=== PATIENT | female | born 1955 | race Caucasian/White ===

== ENCOUNTER 2022-07-25 10:52 | Day surgery (SDC) | payer MEDICARE, BC, OTHER ==
[~2022-07-25 10:52] MED LIST: LIDOCAINE 1% (10MG/ML) FOR IV START INTRADERMA PRN; ONDANSETRON 4 MG/2 ML VIAL IVP PRN; SODIUM CHLORIDE 0.9% 1,000 ML IV SCH
[2022-07-25] MEDS ORDERED: SODIUM CHLORIDE 0.9% 1,000 ML IV ONE (11:14)
[2022-07-25 11:40] LABS: African American GFR (CKD) >90 (>60 ml/min/1.73 sqM); Anion Gap 10 mmol/L; Blood Urea Nitrogen 13 mg/dL (7-17); Calcium 9.4 mg/dL (8.4-10.2); Carbon Dioxide 27 mmol/L (22-30); Chloride 103 mmol/L (98-107); Glucose 91 mg/dL (74-99); Non-African American GFR(CKD) >90 (>60 ml/min/1.73 sqM); Sodium 140 mmol/L (137-145)
[2022-07-25 11:42] LABS: Basophils % (A) 1 %; Eosinophils # (A) 0.2 k/uL (0-0.7); Eosinophils % (A) 3 %; HCT 44.6 % (34.0-46.0); HGB 14.1 gm/dL (11.4-16.0); Lymphocytes # (A) 1.7 k/uL (1.0-4.8); Lymphocytes % (A) 24 %; MCH 28.4 pg (25.0-35.0); MCHC 31.7 g/dL (31.0-37.0); MCV 89.4 fL (80.0-100.0); Mean Platelet Volume 7.7; Monocytes # (A) 0.5 k/uL (0-1.0); Monocytes % (A) 6 %; Neutrophils # (A) 4.6 k/uL (1.3-7.7); Neutrophils % (A) 64 %; Platelet Count 295 k/uL (150-450); RBC 4.99 m/uL (3.80-5.40); RDW 12.2 % (11.5-15.5); WBC 7.2 k/uL (3.8-10.6)
[2022-07-25] MEDS ORDERED: MIDAZOLAM 2 MG/2 ML VIAL ONE (14:43)
[2022-07-25] MEDS ORDERED: PROPOFOL 10 MG/ML 20 ML VIAL IV ONE (14:43)
[2022-07-25] MEDS ORDERED: fentaNYL (PF) 50 MCG/ML 2 ML AMP ONE (14:43)
[2022-07-25] MEDS ORDERED: IV FLUID CONTINUATION 800 ML IV ONE (14:54)
[2022-07-25] MEDS ORDERED: LIDOCAINE 1% INJ 10MG/ML (30 ML VIAL-PF) SQ ONE (15:06)
[2022-07-25] MEDS ORDERED: HEPARIN SODIUM (1,000 UNIT/ML) 1,000 UNIT in SODIUM CHLORIDE 0.9% 1,000 ML IRRIGATION ONE (17:57)
--- NOTE | 2022-07-25 18:14 | P.PRLE ---
RE: Marisol Ramos Dear Julieta Cam Ramos has had multiple episodes of dizzy spells chest pain and palpitations You had documented runs of SVT on her event monitor She underwent a tilt table test She did not have any evidence for neurocardiogenic syncope although there were dips in her blood pressure especially after she developed spontaneous SVT, even though these episodes were brief Subsequently she underwent a diagnostic EP study, which revealed 1. A high right atrial tachycardia, just below the SVC, on the lateral aspect of the right atrium Successful ablation was performed and the tachycardia was rendered noninducible The phrenic nerve was not affected 2. During the EP study we noted that she had a second atrial tachycardia This tachycardia was mapped to the tricuspid annulus, at the 6 o'clock position Successful ablation was performed in the tachycardia was rendered noninducible Following that full EP study is performed and no further arrhythmias were induced However she does have a tendency for atrial fibrillation with mechanical stimulation in the mid right atrial free wall and the right atrial isthmus However atrial fibrillation could not be induced during the EP study pacing maneuvers I would recommend stopping metoprolol and digoxin but continuing Zestril at a higher dose of 10 mg by mouth daily for blood pressure control Thank you for entrusting me with the care of the patient Warm regards Sincerely Akash Contreras Cardiovascular medicine and Cardiac electrophysiology
--- NOTE | 2022-07-25 18:15 | P.PRLE ---
RE: Marisol Ramos Dear Dr. Karen Ramos underwent a tilt table test She did not have any evidence for neurocardiogenic syncope with a were dips in her blood pressure especially after she developed spontaneous SVT, even though these episodes were brief Subsequently be performed a diagnostic EP study which revealed A high right atrial tachycardia, just below the SVC, on the lateral aspect Successful ablation was performed and the tachycardia was rendered noninducible The phrenic nerve was not affected During the EP study we noted that she had a second atrial tachycardia This tachycardia was mapped to the tricuspid annulus, at the 6 o'clock position Successful ablation was performed in the tachycardia was rendered noninducible She does have a tendency for atrial fibrillation but with mechanical stimulation from catheter contact at the mid right atrial wall and the right atrial isthmus However after successful ablation of the above to atrial tachycardias, atrial fibrillation could not be induced with pacing maneuvers and Isuprel I would recommend stopping metoprolol and digoxin but continuing Zestril at a higher dose of 10 mg by mouth daily for blood pressure control Thank you for entrusting me with the care of the patient Warm regards Sincerely Akash Contreras
--- NOTE | 2022-07-25 18:22 | P.EPPROC ---
- EP Procedure Note Electrophysiology Procedure Note: Diagnosis Recurrent SVT associated with dizziness and chest pain and drug refractory Final diagnosis High right atrial tachycardia from just below the SVC, on the lateral aspect of the upper artery Status post successful ablation in the tachycardia was rendered noninducible Phrenic nerve remained intact Second atrial tachycardia from the tricuspid annulus, 6 o'clock position Status post successful ablation in the tachycardia was rendered noninducible Atrial fibrillation induced with mechanical contact in the regions of the mid RV free wall and right atrial isthmus Atrial fibrillation could not be induced with pacing maneuvers on Isuprel after successful ablation of the to atrial tachycardias Details Patient was brought to the EP lab in a fasting state. 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 Venous sheaths were placed in the right and left femoral veins Diagnostic cath was placed in the high right atrium, His bundle area right ventricle and coronary sinus Baseline measurements Sinus cycle length 884 ms, DE interval 114 ms, QRS 82 ms and QT 480 ms AH interval 112 ms and HV interval 31 ms Sinus node recovery times at 600, 504 100 ms with 1162, 1273 and 1089 ms AV node Wenckebach block 320 ms No evidence for slow pathway conduction VA Wenckebach block greater than 600 ms Pacing from the coronary sinus and from the high right atrium induced atrial tachycardia with ease Atrial tachycardia could be induced for the most minimal stimulation The first atrial tachycardia induced was a high right atrial tachycardia 3-D electrograms mapping was performed Intracardiac echo was performed This is localized to the high right atrium on the lateral aspect just below the SVC Phrenic nerve could not be stimulation from the site RF ablation was applied and the tachycardia was rendered noninducible However during mapping of this tachycardia be noted a second atrial tachycardia as well as episodes of atrial fibrillation with mechanical stimulation Atrial fibrillation was induced with mechanical stimulation from the and table lateral aspect of the free wall of the right atrium and the right atrial isthmus These episodes were short-lived and with spontaneously terminate in less than 30 seconds Atrial extra stimulation induced a second atrial tachycardia This was mapped to the chemo tricuspid isthmus, just at the level of the tricuspid annulus, 6 o'clock position Successful RF ablation was performed and the tachycardia was also rendered noninducible Thereafter high dose Isuprel was employed atrial pacing was employed no further atrial tachycardias could be induced No atrial fibrillation could be induced Intracardiac echo at the end of the procedure revealed no evidence for pericardial effusion Venous sheaths were closed with Vascade closure device after removal of the catheters Patient tolerated the procedure well without any acute complications Plan Stop metoprolol Stop digoxin Continue antihypertensive therapy with lisinopril
[2022-07-25] MEDS ORDERED: ACETAMINOPHEN TAB 325 MG TAB PO PRN (18:23)
--- NOTE | 2022-07-25 18:28 | P.EPPROC ---
- EP Procedure Note Electrophysiology Procedure Note: Diagnosis Recurrent dizzy spells Twelve-lead EKG shows sinus rhythm normal UT narrow QRS normal ST segments Tilt table test for protocol Baseline blood pressure 140s over 76. His mercury Baseline heart rate 68 beats a minute Patient was tilted upright at an angle of 70 per protocol During the tilt table tests she had an episode of narrow complex of ventricular tachycardia, long antitachycardia with negative P waves in lead V1 Almost like a W-shaped pattern Following that her blood pressure dipped to 106/60. His mercury Transfer neuro cardiac syncope when she was laid supine at the end of the procedure Impression Normal twelve-lead EKG Spontaneous narrow complex ventricular tachycardia no evidence for neurocardiac syncopal
[2022-07-25] MEDS: LACTATED RINGERS 1,000 ML IV SCH (19:48)
[2022-07-25] MEDS: ACETAMINOPHEN IV (For NPO) 1,000 MG in EMPTY BAG 1 BAG IVPB ONE ×2 (19:57→21:28)
[2022-07-25] MEDS ORDERED: SODIUM CHLORIDE 0.9% 500 ML 500 ML IV ONE (22:41)
[2022-07-25] MEDS ORDERED: KETOROLAC 15 MG/ML 1 ML VIAL IVP STA (22:42)
[2022-07-25] MEDS ORDERED: METOCLOPRAMIDE 5 MG/ML 2 ML VIAL IVP STA (22:42)
[2022-07-26] MEDS: LACTATED RINGERS 1,000 ML IV SCH (02:47)
--- NOTE | 2022-07-26 04:39 | P.DS ---
Providers Attending physician: Akash Contreras Primary care physician: [facility] Course: Patient is doing well this morning She looks a lot more comfortable than last evening Last evening after her procedure she was going nauseous and she was also complaining of chest discomfort Now she has no chest discomfort no pleuritic discomfort at all nausea is a lot better she's lying in bed comfortably No dizziness no lightheadedness On examination her heart sounds are normal and regular No pericardial rub Lungs no rhonchi no crackles Groins of healed well She is lying supine in bed no orthopnea Impression High right atrial tachycardia, dyspnea the SVC, lateral right atrium Status post successful ablation and the tachycardia was rendered noninducible Low right atrial tachycardia at the tricuspid valve, 6 o'clock position, right atrium Status post successful ablation and the tachycardia was rendered noninducible Plan Increase lisinopril 10 mg by mouth daily Stop metoprolol Stop digoxin Atorvastatin 20 mg by mouth daily discharge home if hemodynamically stable today and ambulatory Follow-up with Dr. Contreras in 1 week Patient Condition at Discharge: Stable Plan - Discharge Summary Discharge Rx Participant: No New Discharge Prescriptions: No Action Digoxin [Lanoxin] 125 mcg PO DAILY Acetaminophen Tab [Tylenol] 325 mg PO Q4H PRN PRN Reason: Pain Omeprazole 20 mg PO DAILY Unk Vitamin C 1 tab PO DAILY Unk Multi Vitamin 1 tab PO DAILY lisinopriL [Zestril] 5 mg PO DAILY Unk Vitamin D3 1 tab PO DAILY Discharge Medication List Acetaminophen Tab [Tylenol] 325 mg PO Q4H PRN 07/24/22 [History] Digoxin [Lanoxin] 125 mcg PO DAILY 07/24/22 [History] Omeprazole 20 mg PO DAILY 07/24/22 [History] Unk Multi Vitamin 1 tab PO DAILY 07/24/22 [History] Unk Vitamin C 1 tab PO DAILY 07/24/22 [History] Unk Vitamin D3 1 tab PO DAILY 07/24/22 [History] lisinopriL [Zestril] 5 mg PO DAILY 07/24/22 [History]
[2022-07-26 08:47] VITALS: BP 134/78; PULSE 71; RESP 17; TEMP 97.7
[2022-07-26] MEDS ORDERED: lisinopriL 10 MG TAB PO SCH (09:00)
[2022-07-26] MEDS ORDERED: ONDANSETRON 4 MG/2 ML VIAL IVP PRN (09:11)
== END 2022-07-26 11:04 | disposition home or self-care (01) ==
LOC: CATHEP 10:52 → 6NMEDSUR 17:55 → CATHEP 07-26 11:04
PROVIDERS: ATTEND Internal Medicine Clinical Cardiac Electrophysiology
DX: I47.1 Supraventricular tachycardia (principal); R55 Syncope and collapse; I10 Essential (primary) hypertension; F17.210 Nicotine dependence, cigarettes, uncomplicated; Z79.899 Other long term (current) drug therapy; Z20.822 Contact with and (suspected) exposure to COVID-19
CPT/HCPCS: 93623; 93662; 93613; 93660; 93653; 93655; 80048; 85025; 87635; C1759; C1894; C1769 ×2; C1760; C1766; C1730 ×2; C1732; J2250; J2765; J2405 ×2; J2001; J3010; J1644; J1885; J2704

== ENCOUNTER 2022-07-27 19:04 | Inpatient (IN) | payer MEDICARE, BC, OTHER ==
[2022-07-27] MEDS ORDERED: SODIUM CHLORIDE 0.9% 1,000 ML IV STA (19:18)
[2022-07-27 19:57] LABS: Basophils % (A) 0 %; Eosinophils # (A) 0.2 k/uL (0-0.7); Eosinophils % (A) 3 %; HCT 31.5 % (34.0-46.0); Lymphocytes # (A) 1.9 k/uL (1.0-4.8); Lymphocytes % (A) 31 %; MCH 29.4 pg (25.0-35.0); MCHC 32.5 g/dL (31.0-37.0); MCV 90.4 fL (80.0-100.0); Mean Platelet Volume 8.1; Monocytes # (A) 0.4 k/uL (0-1.0); Monocytes % (A) 7 %; Neutrophils # (A) 3.6 k/uL (1.3-7.7); Neutrophils % (A) 58 %; Platelet Count 218 k/uL (150-450); RBC 3.49 m/uL (3.80-5.40); RDW 12.3 % (11.5-15.5); WBC 6.3 k/uL (3.8-10.6)
[2022-07-27 20:13] LABS: ALT 21 U/L (4-34); AST 29 U/L (14-36); African American GFR (CKD) >90 (>60 ml/min/1.73 sqM); Albumin 3.7 g/dL (3.5-5.0); Alkaline Phosphatase 62 U/L (38-126); Anion Gap 10 mmol/L; Blood Urea Nitrogen 9 mg/dL (7-17); Calcium 8.9 mg/dL (8.4-10.2); Carbon Dioxide 28 mmol/L (22-30); Chloride 104 mmol/L (98-107); Glucose 100 mg/dL (74-99); Magnesium 1.9 mg/dL (1.6-2.3); Non-African American GFR(CKD) >90 (>60 ml/min/1.73 sqM); Potassium 3.7 mmol/L (3.5-5.1); Sodium 142 mmol/L (137-145)
[2022-07-27 20:23] LABS: INR 1.1 (<1.2); Prothrombin Time 11.5 sec (9.0-12.0)
[2022-07-27 20:25] LABS: Total Bilirubin 0.7 mg/dL (0.2-1.3)
[2022-07-27 20:28] LABS: HGB 10.2 gm/dL (11.4-16.0)
[2022-07-27] MEDS ORDERED: HEPARIN SODIUM 1,000 UN/ML (10ML VL) IV PRN (20:30)
--- NOTE | 2022-07-27 20:35 | ED ---
Chest Pain HPI - General Chief Complaint: Chest Pain Stated Complaint: chest pain Time Seen by Provider: 07/27/22 19:11 Source: patient, EMS Mode of arrival: EMS Limitations: no limitations - History of Present Illness Initial Comments: Patient is a 66-year-old female with a past medical history of COPD, hypertension, hyperlipidemia, SVT s/p recent ablation who presents to the emergency department with a chief complaint of chest pain. Patient states pain started around 2 PM this afternoon. Describes the pain as an intermittent mild aching in her chest. There is no radiation. Pain occurs at rest. It is not worsened with movement of the chest. Patient had an ablation performed by Dr. Contreras on 07/25 due to SVT. Patient states she has history of nausea and vomiting due to anesthesia and reports consistent nausea and vomiting after procedure with anesthesia. Patient currently feels nauseous however has not vomited today. Denies lightheadedness, dizziness, sweating, vomiting, abdominal pain, shortness of breath. Does report headache this morning which has since resolved. States during headache she checked blood pressure which was 180 systolic. States she takes lisinopril for blood pressure and dose was increased from 5 mg to 10 mg after procedure. Reports compliance with blood pressure medication. Patient went to [facility] today who perform cardiac workup. According to [facility] blood pressure was elevated at 208/110, EKG showed ST depression, and troponin was elevated at 0.27. Patient was given heparin bolus and aspirin and sent to our emergency department. Patient denies history of myocardial infarction. - Related Data Home Medications Medication Instructions Recorded Confirmed Acetaminophen Tab [Tylenol] 650 mg PO Q4H PRN 07/24/22 07/27/22 Omeprazole 20 mg PO DAILY 07/24/22 07/27/22 Albuterol Inhaler [Ventolin Hfa 2 puff INHALATION RT-Q6H PRN 07/27/22 07/27/22 Inhaler] Albuterol Nebulized [Ventolin 2.5 mg INHALATION RT-Q6H PRN 07/27/22 07/27/22 Nebulized] Ascorbic Acid [Vitamin C] 500 mg PO DAILY 07/27/22 07/27/22 Budesonide [Pulmicort] 0.5 mg INHALATION RT-BID PRN 07/27/22 07/27/22 Cholecalciferol [Vitamin D3 (25 25 mcg PO DAILY 07/27/22 07/27/22 Mcg = 1000 Iu)] Digoxin [Lanoxin] 125 mcg PO DAILY 07/27/22 07/27/22 HYDROcodone/APAP 7.5-325MG [[place] 1 tab PO BID PRN 07/27/22 07/27/22 7.5-325] Ketoconazole 2% Cream [Nizoral 2%] 1 applic TOPICAL DAILY PRN 07/27/22 07/27/22 Loratadine [Claritin] 10 mg PO DAILY 07/27/22 07/27/22 Multivitamins, Thera [Multivitamin 1 tab PO DAILY 07/27/22 07/27/22 (formulary)] Tazarotene [Tazorac] 1 applic TOPICAL HS PRN 07/27/22 07/27/22 metroNIDAZOLE 0.75% VAGINAL 1 applic VAGINAL DAILY PRN 07/27/22 07/27/22 [Metrogel Vaginal] Previous Rx's Medication Instructions Recorded Atorvastatin [Lipitor] 20 mg PO DAILY #90 tablet 07/26/22 lisinopriL [Prinivil] 10 mg PO DAILY #90 tab 07/26/22 Allergies Allergy/AdvReac Type Severity Reaction Status Date / Time sulfamethoxazole AdvReac Nausea & Verified 07/27/22 19:12 [From Bactrim] Vomiting trimethoprim [From Bactrim] AdvReac Nausea & Verified 07/27/22 19:12 Vomiting Review of Systems ROS Statement: Those systems with pertinent positive or pertinent negative responses have been documented in the HPI. ROS Other: All systems not noted in ROS Statement are negative. Past Medical History Past Medical History: Cancer, COPD, GERD/Reflux, Hyperlipidemia, Hypertension, Pneumonia Additional Past Medical History / Comment(s): see Dr Contreras H&P, arthritis generalized, pneumonia 6 months ago. hx UTIs. hx ovarian cancer. hiatal hernia History of Any Multi-Drug Resistant Organisms: None Reported Past Surgical History: Ablation, Hernia Repair, Hysterectomy Additional Past Surgical History / Comment(s): 4 breast tumors removed benign. left inguinal hernia repair, broken lt wrist repair repaired with plates and screws. Past Anesthesia/Blood Transfusion Reactions: Postoperative Nausea & Vomiting (PONV) Additional Past Anesthesia/Blood Transfusion Reaction / Comment(s): no blood transfusions Past Psychological History: Depression Smoking Status: Former smoker Past Alcohol Use History: None Reported Past Drug Use History: None Reported - Past Family History Mother Family Medical History: Cancer, Coronary Artery Disease (CAD), Diabetes Mellitus Additional Family Medical History / Comment(s): bone cancer Father Family Medical History: Myocardial Infarction ([place]) Brother(s) Family Medical History: Myocardial Infarction ([place]) Sister(s) Family Medical History: Myocardial Infarction ([place]) General Exam Limitations: no limitations General appearance: alert, in no apparent distress Eye exam: Present: normal appearance, PERRL, EOMI. Absent: scleral icterus, conjunctival injection, periorbital swelling Respiratory exam: Present: normal lung sounds bilaterally. Absent: respiratory distress, wheezes, rales, rhonchi, stridor Cardiovascular Exam: Present: regular rate, normal rhythm, normal heart sounds. Absent: systolic murmur, diastolic murmur, rubs, gallop, clicks Neurological exam: Present: alert, oriented X3, CN II-XII intact Psychiatric exam: Present: normal affect, normal mood Skin exam: Present: warm, dry, intact, normal color. Absent: rash Course Vital Signs 07/27/22 07/27/22 07/27/22 19:06 19:42 21:12 Temperature 98.1 F Pulse Rate 81 84 Pulse Rate [ 81 Critical Power Technician ] Respiratory 18 16 Rate Blood Pressure 177/101 136/78 O2 Sat by Pulse 95 98 Oximetry 07/27/22 21:59 Temperature Pulse Rate 76 Pulse Rate [ Critical Power Technician ] Respiratory Rate Blood Pressure 140/75 O2 Sat by Pulse Oximetry Chest Pain MDM - MDM This is a 66-year-old female presenting with chest pain after recent ablation. Patient is a well-appearing and in no apparent distress. Blood pressure elevated at 177/101. Pulse 81. Patient given fluid bolus and heparin drip. EKG shows sinus rhythm without significant ST or T wave changes from EKG on 07/25. Troponin elevated at 0.18, decreased from 0.27 at [facility] earlier this afternoon. Troponin possibly elevated due to recent ablation however given patient has chest pain I will admit her with cardiology consult and serial troponins. Case discussed with Mohsen Ramos who accept admission. Dr. Lambert is my attending. Disposition Clinical Impression: Elevated troponin, Chest pain, Nausea, Hx of prior ablation treatment Disposition: ADMITTED IP TO THIS HOSP Condition: Good
[2022-07-27] MEDS ORDERED: cloNIDine HCL 0.1 MG TAB PO STA (20:37)
[2022-07-27] MEDS ORDERED: ONDANSETRON 4 MG/2 ML VIAL IVP STA (20:39)
--- NOTE | 2022-07-27 20:48 | XR ---
EXAMINATION TYPE: XR chest 2V DATE OF EXAM: 07/27/2022 COMPARISON: NONE HISTORY: Chest pain TECHNIQUE: FINDINGS: Heart and mediastinum are normal. Lungs are clear. Diaphragm is normal. Bony thorax is inta ct. There are chest leads. IMPRESSION: Normal chest.
[2022-07-27 21:07] LABS: Partial Thromboplastin Time 118.1 sec (22.0-30.0)
[2022-07-27] MEDS ORDERED: NALOXONE 0.4 MG/ML 1 ML VIAL IV PRN (21:23)
[2022-07-27] MEDS ORDERED: ACETAMINOPHEN TAB 325 MG TAB PO PRN (21:24)
[2022-07-27] MEDS: HEPARIN SOD,PORK IN 0.45% NACL 25,000 UNIT in 0.45% NACL 1 250ML.BAG IV SCH (21:36)
[2022-07-27] MEDS ORDERED: ACETAMINOPHEN TAB 500 MG TAB PO STA (21:47)
[2022-07-28] MEDS ORDERED: BUDESONIDE 0.5 MG/2 ML NEBU INHALATION PRN (08:41)
[2022-07-28] MEDS ORDERED: ALBUTEROL NEBULIZED 2.5 MG/3 ML INHALATION PRN (08:41)
[2022-07-28] MEDS ORDERED: HYDROcodone/APAP 7.5-325MG 1 EACH TAB PO PRN (08:41)
[2022-07-28] MEDS: DIGOXIN 125 MCG TAB PO SCH (08:50)
[2022-07-28] MEDS ORDERED: VITAMIN D3 PO SCH (09:00)
[2022-07-28] MEDS ORDERED: VITAMIN C PO SCH (09:00)
[2022-07-28] MEDS ORDERED: ATORVASTATIN 20 MG TAB PO SCH (09:00)
[2022-07-28] MEDS: LORATADINE 10 MG TAB PO SCH (09:08)
[2022-07-28] MEDS: CHOLECALCIFEROL 25 MCG (1000 IU) TABLET PO SCH (09:08)
[2022-07-28] MEDS: PANTOPRAZOLE 40 MG TABLET PO SCH (09:09)
[2022-07-28] MEDS: lisinopriL 10 MG TAB PO SCH (09:09)
[2022-07-28] MEDS: MULTIVITAMINS, THERA 1 EACH TAB PO SCH (09:09)
[2022-07-28] MEDS: ASCORBIC ACID 500 MG TAB PO SCH (09:09)
[2022-07-28 09:32] LABS: Basophils % (A) 1 %; Eosinophils # (A) 0.2 k/uL (0-0.7); Eosinophils % (A) 3 %; HCT 39.3 % (34.0-46.0); HGB 12.6 gm/dL (11.4-16.0); Lymphocytes # (A) 1.4 k/uL (1.0-4.8); Lymphocytes % (A) 24 %; MCHC 32.1 g/dL (31.0-37.0); MCV 90.2 fL (80.0-100.0); Mean Platelet Volume 8.7; Monocytes # (A) 0.4 k/uL (0-1.0); Monocytes % (A) 7 %; Neutrophils # (A) 3.8 k/uL (1.3-7.7); Neutrophils % (A) 63 %; Platelet Count 250 k/uL (150-450); RBC 4.35 m/uL (3.80-5.40); RDW 12.4 % (11.5-15.5)
--- NOTE | 2022-07-28 11:31 | CA ---
Transthoracic Echo Report Name: Marisol Ramos Age: 66 Gender: F : 1955 Exam Date: 07/28/2022 10:22 Exam Location: [facility] Ht (in): 65 Wt (lb): 169 Ordering Physician: Alexis Diaz MD ([id number]) Attending/Referring Phys: Joe ROCHE Corporate Strategist Yael Perez RDCS Procedure CPT: Indications: CP, recent ablation, r/o pericardial effusion Cardiac Hx: Technical Quality: Good Contrast 1: Total Dose (mL): Contrast 2: Total Dose (mL): MEASUREMENTS (Male / Female) Normal Values 2D ECHO LV Diastolic Diameter PLAX 4.2 cm 4.2 - 5.9 / 3.9 - 5.3 cm LV Systolic Diameter PLAX 2.6 cm IVS Diastolic Thickness 0.8 cm 0.6 - 1.0 / 0.6 - 0.9 cm LVPW Diastolic Thickness 1.3 cm 0.6 - 1.0 / 0.6 - 0.9 cm LV Relative Wall Thickness 0.5 RV Internal Dim ED PLAX 2.9 cm LA Systolic Diameter LX 3.2 cm 3.0 - 4.0 / 2.7 - 3.8 cm LA Volume 39.7 cm??? 18 - 58 / 22 - 52 cm??? M-MODE Aortic Root Diameter MM 3.4 cm LA Systolic Diameter MM 3.4 cm LA Ao Ratio MM 1.0 MV E Point Septal Separation 0.4 cm AV Cusp Separation MM 2.1 cm DOPPLER MV Area PHT 4.4 cm??? Mitral E Point Velocity 61.4 cm/s Mitral A Point Velocity 73.5 cm/s Mitral E to A Ratio 0.8 MV Deceleration Time 170.5 ms FINDINGS Left Ventricle Normal left ventricular size, wall thickness, systolic function with no obvious regional wall motion abnormalities. Right Ventricle The right ventricle is normal in size and function. Right Atrium The right atrium is normal in size. Left Atrium The left atrium is normal in size. Mitral Valve Structurally normal mitral valve without significant stenosis or prolapse. There is mild mitral regurgitation. Aortic Valve Structurally normal aortic valve without significant sclerosis or stenosis. There is no aortic regurgitation. Tricuspid Valve Structurally normal tricuspid valve without significant stenosis. Pulmonary artery systolic pressure is normal. Pulmonic Valve Structurally normal pulmonic valve without significant stenosis. There is no pulmonic regurgitation. Pericardium Normal pericardium without effusion. Aorta Normal aortic root dimension. CONCLUSIONS Normal LV systolic function Mild mitral regurgitation Previewed by: Dr. Alexis Diaz MD (Electronically Signed) Final Date: 28 July 2022 11:30
--- NOTE | 2022-07-28 12:42 | CONS ---
CONSULTATION CHIEF COMPLAINT: Elevated troponin. HISTORY OF PRESENT ILLNESS: This is a 66-year-old lady with history of paroxysmal SVT for which she underwent EP study and ablation by Dr. Contreras on . She had a tilt-table test initially where she had SVT. She was found to have high right atrial tachycardia for which she underwent successful ablation that was rendered noninducible. At the time of her discharge, she was becoming quite nauseous and she has had chest discomfort and subsequently her chest discomfort had resolved, but when she went home, she apparently had nausea and headache. This continued and she developed episodes of vomiting and started having chest tightness. As a result, her blood pressure became elevated, she had multiple readings, was concerned and went to the emergency room in [place]. From there, she had been transferred to [facility]. She describes her chest pain as mild, intermittent like an itchy sensation. It is not pleuritic, it does not get worse with movements. She, however, has nausea. EKG showed sinus rhythm with nonspecific ST-T wave changes somewhat similar to the EKG that she had prior. She was started on IV heparin and admitted to hospital. At the time of my evaluation, she appears very comfortable at rest and is free of significant symptoms. She had 2 troponins that are at 0.1 and 0.1. Her creatinine is normal, hemoglobin is 10.2 and that is a significant drop from a 14.1 that was documented 4 days ago. She does not have any hematemesis and she does not have melanotic stools. The D-dimer was normal. Prior to being referred to an customs opener verifier packer, she apparently had extensive cardiac workup. She had cardiac catheterization and an echo also. I do not have the cardiac catheterization report, but we were told it was unremarkable. The patient has strong family history of coronary artery disease and also has history of dyslipidemia and hypertension. PAST MEDICAL HISTORY: Significant for paroxysmal SVT, status post recent ablation; hypertension; dyslipidemia. CURRENT MEDICATIONS: Include lisinopril 10 daily, omeprazole, Pulmicort, Lipitor 20 daily, [place], Claritin, and Lanoxin. ALLERGIES: The patient is allergic to Bactrim. FAMILY HISTORY: Significant for premature coronary artery disease in her sister and mother. REVIEW OF SYSTEMS: HEENT: Significant for headache and nausea. CARDIAC: Significant for chest pain. RESPIRATORY: Negative. GASTROINTESTINAL: As described above. GENITOURINARY: Negative. ALLERGY/IMMUNOLOGY: Negative. SKIN: Negative. MUSCULOSKELETAL: Negative ENDOCRINE: Negative. DERM: Negative. CONSTITUTIONAL: Negative. ONCOLOGICAL: Negative. CHAIR SPRING ASSEMBLER: Negative. Rest of the system review is not relevant. PHYSICAL EXAMINATION: GENERAL: The patient is afebrile. VITAL SIGNS: Heart rate is 60 beats per minute, blood pressure is 148/67, respiratory rate is 18, O2 saturation is 99% on room air. NECK: There is no jugular venous distention. Carotid upstroke is normal. There is no bruit. CHEST: Reveals good air entry bilaterally. HEART: Reveals first and second heart sounds. I do not hear any gallop. There is no murmur and there is no pericardial rub. ABDOMEN: Soft. EXTREMITIES: Did not reveal any edema. Peripheral pulses are palpable. LABORATORY DATA: Labs show a hemoglobin of 10.2, platelet count is 218, white cell count is normal at 6.3. Potassium is 3.7. Troponins are mildly elevated at 0.1 and 0.1. ASSESSMENT: 1. Chest discomfort with elevated troponin. 2. Paroxysmal supraventricular tachycardia, status post recent ablation. 3. Hypertension. 4. Dyslipidemia. PLAN: The patient's troponin elevation and her symptoms could be related to the recent cardiac intervention. She, in fact, had symptoms of chest discomfort and nausea immediately after the procedure and continued to have nausea after being discharged. I am concerned with the drop in her hemoglobin. We want to make sure that she does not have any pericardial effusion. I am going to obtain a 2D echo on her both to assess her LV function, wall motion and to rule out any pericardial effusion. Will monitor her on telemetry and consider further workup for elevated troponin depending upon when her previous cardiac cath was and what was found in it. I am going to repeat a CBC on her this morning to see what is happening to her hemoglobin and if necessary stop the IV heparin. MMODL / IJN: [id number] /
[2022-07-28] MEDS ORDERED: CALCIUM CARBONATE 500 MG CHEWABLE PO PRN (13:04)
--- NOTE | 2022-07-28 13:08 | P.HPIM ---
History of Present Illness H&P Date: 07/28/22 Chief Complaint: Chest pain 66-year-old female with a past medical history of COPD, hypertension, hyperlipidemia, SVT s/p recent ablation who presents to the emergency department with a chief complaint of chest pain. Patient states pain started around 2 PM this afternoon. Describes the pain as an intermittent mild aching in her chest. There is no radiation. Pain occurs at rest. It is not worsened with movement of the chest. Patient had an ablation performed by Dr. Contreras on 07/25 due to SVT. Patient states she has history of nausea and vomiting due to anesthesia and reports consistent nausea and vomiting after procedure with anesthesia. Patient currently feels nauseous however has not vomited today. Denies lightheadedness, dizziness, sweating, vomiting, abdominal pain, shortness of breath. Does report headache this morning which has since resolved. States during headache she checked blood pressure which was 180 systolic. States she takes lisinopril for blood pressure and dose was increased from 5 mg to 10 mg after procedure. Reports compliance with blood pressure medication. Patient went to [facility] today who perform cardiac workup. According to [facility] blood pressure was elevated at 208/110, EKG showed ST depression, and troponin was elevated at 0.27. Patient was given heparin bolus and aspirin and sent to our emergency department. Patient denies history of myocardial infarction. EKG shows sinus rhythm without significant ST or T wave changes from EKG on 07/25. Troponin elevated at 0.18, decreased from 0.27 at [facility] earlier this [place]. Review of Systems REVIEW OF SYSTEMS: CONSTITUTIONAL: No fever, no malaise, no fatigue. HEENT: No recent visual problems or hearing problems. Denied any sore throat. CARDIOVASCULAR: No chest pain, orthopnea, PND, no palpitations, no syncope. PULMONARY: No shortness of breath, no cough, no hemoptysis. GASTROINTESTINAL: No diarrhea, no nausea, no vomiting, no abdominal pain. NEUROLOGICAL: No headaches, no weakness, no numbness. HEMATOLOGICAL: Denies any bleeding or petechiae. GENITOURINARY: Denies any burning micturition, frequency, or urgency. MUSCULOSKELETAL/RHEUMATOLOGICAL: Denies any joint pain, swelling, or any muscle pain. ENDOCRINE: Denies any polyuria or polydipsia. The rest of the 14-point review of systems is negative. Past Medical History Past Medical History: Cancer, COPD, GERD/Reflux, Hyperlipidemia, Hypertension, Pneumonia Additional Past Medical History / Comment(s): see Dr Cotnreras H&P, arthritis generalized, pneumonia 6 months ago. hx UTIs. hx ovarian cancer. hiatal hernia History of Any Multi-Drug Resistant Organisms: None Reported Past Surgical History: Ablation, Hernia Repair, Hysterectomy Additional Past Surgical History / Comment(s): 4 breast tumors removed benign. left inguinal hernia repair, broken lt wrist repair repaired with plates and screws. Past Anesthesia/Blood Transfusion Reactions: Postoperative Nausea & Vomiting (PONV) Additional Past Anesthesia/Blood Transfusion Reaction / Comment(s): no blood transfusions Past Psychological History: Depression Smoking Status: Former smoker Past Alcohol Use History: None Reported Past Drug Use History: None Reported - Past Family History Mother Family Medical History: Cancer, Coronary Artery Disease (CAD), Diabetes Mellitus Additional Family Medical History / Comment(s): bone cancer Father Family Medical History: Myocardial Infarction ([place]) Brother(s) Family Medical History: Myocardial Infarction ([place]) Sister(s) Family Medical History: Myocardial Infarction ([place]) Medications and Allergies Home Medications Medication Instructions Recorded Confirmed Type Acetaminophen Tab [Tylenol] 650 mg PO Q4H PRN 07/24/22 07/27/22 History Omeprazole 20 mg PO DAILY 07/24/22 07/27/22 History Atorvastatin [Lipitor] 20 mg PO DAILY #90 tablet 07/26/22 07/27/22 Rx lisinopriL [Prinivil] 10 mg PO DAILY #90 tab 07/26/22 07/27/22 Rx Albuterol Inhaler [Ventolin Hfa 2 puff INHALATION RT-Q6H PRN 07/27/22 07/27/22 History Inhaler] Albuterol Nebulized [Ventolin 2.5 mg INHALATION RT-Q6H PRN 07/27/22 07/27/22 H istory Nebulized] Ascorbic Acid [Vitamin C] 500 mg PO DAILY 07/27/22 07/27/22 History Budesonide [Pulmicort] 0.5 mg INHALATION RT-BID PRN 07/27/22 07/27/22 History Cholecalciferol [Vitamin D3 (25 25 mcg PO DAILY 07/27/22 07/27/22 History Mcg = 1000 Iu)] Digoxin [Lanoxin] 125 mcg PO DAILY 07/27/22 07/27/22 History HYDROcodone/APAP 7.5-325MG [[place] 1 tab PO BID PRN 07/27/22 07/27/22 History 7.5-325] Ketoconazole 2% Cream [Nizoral 2%] 1 applic TOPICAL DAILY PRN 07/27/22 07/27/22 History Loratadine [Claritin] 10 mg PO DAILY 07/27/22 07/27/22 History Multivitamins, Thera [Multivitamin 1 tab PO DAILY 07/27/22 07/27/22 History (formulary)] Tazarotene [Tazorac] 1 applic TOPICAL HS PRN 07/27/22 07/27/22 History metroNIDAZOLE 0.75% VAGINAL 1 applic VAGINAL DAILY PRN 07/27/22 07/27/22 History [Metrogel Vaginal] Allergies Allergy/AdvReac Type Severity Reaction Status Date / Time sulfamethoxazole AdvReac Nausea & Verified 07/27/22 19:12 [From Bactrim] Vomiting trimethoprim [From Bactrim] AdvReac Nausea & Verified 07/27/22 19:12 Vomiting Physical Exam Vitals: Vital Signs Temp Pulse Pulse Resp BP BP Pulse Ox 07/28/22 04:00 98.2 F 62 18 148/67 99 07/28/22 02:00 66 18 07/28/22 00:00 98.4 F 66 16 149/75 95 07/27/22 22:17 98.1 F 77 16 169/90 97 07/27/22 21:59 76 140/75 07/27/22 21:12 84 16 136/78 98 07/27/22 19:42 81 07/27/22 19:06 98.1 F 81 18 177/101 95 Intake and Output 07/27/22 07/28/22 07/28/22 22:59 06:59 14:59 Intake Total 36.489 Balance 36.489 Intake: Intake, IV Titration 36.489 Amount Heparin Sod,Pork in 0.45% 36.489 NaCl 25,000 unit In 0.45 % NaCl 1 250ml.bag @ 12 UNITS/KG/HR 9.199 mls/hr IV .Q24H [facility] Rx#: [id number] Other: Voiding Method Toilet # Voids 1 1 Weight 76.657 kg General appearance: alert, in no apparent distress Eye exam: Present: normal appearance, PERRL, EOMI. Absent: scleral icterus, conjunctival injection, periorbital swelling Respiratory exam: Present: normal lung sounds bilaterally. Absent: respiratory distress, wheezes, rales, rhonchi, stridor Cardiovascular Exam: Present: regular rate, normal rhythm, normal heart sounds. Absent: systolic murmur, diastolic murmur, rubs, gallop, clicks Neurological exam: Present: alert, oriented X3, CN II-XII intact Psychiatric exam: Present: normal affect, normal mood Skin exam: Present: warm, dry, intact, normal color. Absent: rash Results CBC & Chem 7: 07/28/22 08:38 07/27/22 19:35 Labs: Abnormal Lab Results - Last 24 Hours (Table) 07/27/22 07/27/22 07/27/22 Range/Units 19:35 19:35 19:35 RBC 3.49 L (3.80-5.40) m/uL Hgb 10.2 L D (11.4-16.0) gm/dL Hct 31.5 L (34.0-46.0) % APTT 118.1 H* (22.0-30.0) sec Glucose 100 H (74-99) mg/dL Troponin I (0.000-0.034) ng/mL Total Protein 6.0 L (6.3-8.2) g/dL 07/27/22 07/27/22 07/28/22 Range/Units 19:35 21:50 00:05 RBC (3.80-5.40) m/uL Hgb (11.4-16.0) gm/dL Hct (34.0-46.0) % APTT 37.5 H (22.0-30.0) sec Glucose (74-99) mg/dL Troponin I 0.180 H* 0.199 H* (0.000-0.034) ng/mL Total Protein (6.3-8.2) g/dL Thrombosis Risk Factor Assmnt - Choose All That Apply Any of the Below Risk Factors Present?: Yes Each Factor Represents 1 point: Abnormal pulmonary function (COPD), Medical pt on bed rest, Obesity (BMI >25) Each Risk Factor Represents 2 Points: Age 61-74 years Other congenital or acquired thrombophilia - If yes, enter type in comment: No Thrombosis Risk Factor Assessment Total Risk Factor Score: 5 Thrombosis Risk Factor Assessment Level: High Risk Assessment and Plan Assessment: 1. Chest pain/NSTEMI - Patient had recent ablation done for SVT - Patient has been placed on IV heparin which will be resumed - We will monitor EKG and trend troponin; order 2-D echo - Patient has been evaluated by cardiology with plans for possible cardiac catheterization tomorrow morning 2. Uncontrolled hypertension; we will continue with home antihypertensive therapy including lisinopril which was recently increased from 5 milligrams up to 10 mg daily; we will monitor blood pressure closely and make further recomme ndations 3. Hyperlipidemia; continue with current dose of atorvastatin 4. COPD; not in exacerbation; continue with Pulmicort inhaler twice a day along with Ventolin inhaler when necessary 5. GERD/gastritis; Protonix 40 mg daily; patient can have when necessary Tums or Mylanta DVT prophylaxis; SCDs/IV heparin CODE STATUS; full code
[2022-07-28] MEDS: polyethylene glycoL 3350 17 GM POWD.PACK PO SCH (13:10)
[2022-07-28] MEDS: HEPARIN SOD,PORK IN 0.45% NACL 25,000 UNIT in 0.45% NACL 1 250ML.BAG IV SCH (20:59)
[2022-07-28] MEDS ORDERED: lisinopriL 10 MG TAB PO STA (21:59)
[2022-07-28] MEDS ORDERED: LORazepam 0.5 MG TAB PO STA (22:00)
[2022-07-28] MEDS ORDERED: SODIUM CHLORIDE 0.9% 1,000 ML IV SCH (22:15)
[2022-07-28] MEDS: METOPROLOL TARTRATE 25 MG TAB PO SCH (22:15)
[2022-07-28] MEDS: ASPIRIN 81 MG PO SCH (22:16)
[2022-07-28] MEDS: ACETAMINOPHEN TAB 325 MG TAB PO PRN (22:16)
[2022-07-29] MEDS: ACETAMINOPHEN TAB 325 MG TAB PO PRN ×2 (04:32→10:22)
[2022-07-29] MEDS: PANTOPRAZOLE 40 MG TABLET PO SCH (05:41)
[2022-07-29] MEDS: lisinopriL 10 MG TAB PO SCH (05:41)
[2022-07-29] MEDS: METOPROLOL TARTRATE 25 MG TAB PO SCH (05:41)
[2022-07-29] MEDS: ASPIRIN 81 MG PO SCH (05:41)
[2022-07-29] MEDS: DIGOXIN 125 MCG TAB PO SCH (05:42)
[2022-07-29 07:34] LABS: Basophils % (A) 1 %; Eosinophils # (A) 0.2 k/uL (0-0.7); Eosinophils % (A) 5 %; HCT 39.5 % (34.0-46.0); HGB 12.7 gm/dL (11.4-16.0); Lymphocytes # (A) 0.6 k/uL (1.0-4.8); Lymphocytes % (A) 11 %; MCH 29.2 pg (25.0-35.0); MCHC 32.3 g/dL (31.0-37.0); MCV 90.6 fL (80.0-100.0); Monocytes # (A) 0.4 k/uL (0-1.0); Monocytes % (A) 8 %; Neutrophils # (A) 3.9 k/uL (1.3-7.7); Neutrophils % (A) 75 %; Platelet Count 247 k/uL (150-450); RBC 4.36 m/uL (3.80-5.40); RDW 12.2 % (11.5-15.5); WBC 5.2 k/uL (3.8-10.6)
[2022-07-29 07:45] LABS: African American GFR (CKD) >90 (>60 ml/min/1.73 sqM); Anion Gap 7 mmol/L; Blood Urea Nitrogen 8 mg/dL (7-17); Calcium 8.9 mg/dL (8.4-10.2); Carbon Dioxide 30 mmol/L (22-30); Chloride 104 mmol/L (98-107); Glucose 92 mg/dL (74-99); Non-African American GFR(CKD) 80 (>60 ml/min/1.73 sqM); Potassium 3.6 mmol/L (3.5-5.1); Sodium 141 mmol/L (137-145)
[2022-07-29] MEDS ORDERED: ATORVASTATIN 40 MG TAB PO SCH (09:00)
[2022-07-29] MEDS ORDERED: ONDANSETRON 4 MG/2 ML VIAL IVP PRN (09:22)
[2022-07-29 10:14] VITALS: RESP 17
[2022-07-29] MEDS: CHOLECALCIFEROL 25 MCG (1000 IU) TABLET PO SCH ×2 (10:22→10:31)
[2022-07-29] MEDS: ASCORBIC ACID 500 MG TAB PO SCH (10:22)
[2022-07-29] MEDS: MULTIVITAMINS, THERA 1 EACH TAB PO SCH (10:23)
[2022-07-29] MEDS: LORATADINE 10 MG TAB PO SCH (10:31)
[2022-07-29] MEDS: polyethylene glycoL 3350 17 GM POWD.PACK PO SCH (10:31)
--- NOTE | 2022-07-29 11:58 | P.PN ---
Progress Note - Text Patient had successful ablation of 2 focal tachycardias in the right atrium Please discontinue digoxin completely Discontinue metoprolol
[2022-07-29 11:59] VITALS: BP 121/74; PULSE 78; TEMP 98.1
--- NOTE | 2022-07-30 06:07 | PN ---
PROGRESS NOTE SUBJECTIVE: This lady underwent radiofrequency ablation for atrial tachycardia. She has no obstructive CAD according to her by a cath a few months ago. Her troponin was slightly elevated following ablation, which is not unusual. She complained of nausea, which has resolved. Her headache has also improved. OBJECTIVE: VITALS: Stable. HEART: S1, S2 heard normally. LUNGS: Clear. ABDOMEN: Exam unchanged. LOWER EXTREMITIES: Exam unchanged. Echo revealed normal systolic function. Her chest pain has gone. She has no pleuritic pain, no pericardial effusion. She can be discharged today and follow up with Dr. Contreras in about 7-10 days. I discussed my thoughts in detail with the patient. Additional troponin was performed and is 0.07, which shows a downward trend. MMODL / IJN: [id number] /
--- NOTE | 2022-07-30 07:27 | DS ---
DISCHARGE SUMMARY FINAL DIAGNOSES: 1. Chest pain possibly nonspecific myocardial infarction unlikely per Cardiology. 2. Hypertension. 3. History of recent ablation for paroxysmal supraventricular tachycardia. DISCHARGE DISPOSITION: The patient will be discharged in stable condition. Guarded prognosis. Guarded prognosis. Medications after cleared by Cardiology. HISTORY OF PRESENT ILLNESS: This is a 66-year-old woman without past medical history, admitted with some chest pain and elevated troponin. The patient was monitored. The troponin was coming down. Case was discussed with Dr. Cecelia Ken, who discussed case with Dr. Contreras and the patient will be discharged in stable condition. Guarded prognosis. PHYSICAL EXAMINATION: VITAL SIGNS: Stable. CARDIOVASCULAR: S1, S2. ABDOMEN: Soft. NERVOUS SYSTEM: No focal deficits. DISCHARGE MEDICATIONS: Resume the home medications. Add aspirin 81 mg daily, Lipitor 40 mg daily, metoprolol 25 mg b.i.d. Follow up with Cardiology and Primary. MMODL / IJN: [id number] /
== END 2022-07-29 13:17 | disposition home or self-care (01) | DRG 313 ==
LOC: EC 19:04 → 3SCARD 19:36
PROVIDERS: ADMIT Hospitalist; ATTEND Hospitalist
DX: R07.9 Chest pain, unspecified (principal); R79.89 Other specified abnormal findings of blood chemistry; E78.5 Hyperlipidemia, unspecified; F32.A Depression, unspecified; I10 Essential (primary) hypertension; I34.0 Nonrheumatic mitral (valve) insufficiency; J44.9 Chronic obstructive pulmonary disease, unspecified; K21.9 Gastro-esophageal reflux disease without esophagitis; K29.70 Gastritis, unspecified, without bleeding; Z79.899 Other long term (current) drug therapy; Z85.43 Personal history of malignant neoplasm of ovary; Z87.01 Personal history of pneumonia (recurrent); Z87.440 Personal history of urinary (tract) infections; Z87.891 Personal history of nicotine dependence; Z90.710 Acquired absence of both cervix and uterus; Z87.19 Personal history of other diseases of the digestive system; Z20.822 Contact with and (suspected) exposure to COVID-19; Z88.1 Allergy status to other antibiotic agents
CPT/HCPCS: 36415; 71046; 80048; 80053; 83735; 84484; 85025; 85379; 85610; 85730; 87635; 93005; 93306; 96361; 96365; 96375; 99285